=== PATIENT | female | born 1990 | race Caucasian/White ===

== ENCOUNTER 2020-12-13 13:37 | Outpatient (REF) | payer BC, SELFPAY | END 2020-12-13 13:38 | disposition home or self-care (01) | LOC: HO.LAB 13:37 | PROVIDERS: Visit Provider Hospitalist | DX: R82.71 Bacteriuria (principal) | CPT/HCPCS: 87086 ==

== ENCOUNTER 2020-12-21 19:05 | Emergency (ER) | payer BC, SELFPAY ==
[2020-12-21 21:01] VITALS: BP 107/76; PULSE 63; RESP 16; TEMP 37.1; O2SAT 100; BMI 17.7
[2020-12-21 23:22] VITALS: BP 115/67; PULSE 54; RESP 14; TEMP 36.8; O2SAT 100
--- NOTE | 2020-12-21 23:53 | ED.BACK ---
HPI - Back Pain/Injury General Chief Complaint: Back Pain/Injury Stated Complaint: Back pain Time Seen by Provider: 12/21/20 23:34 Source: patient Mode of arrival: ambulatory Limitations: no limitations History of Present Illness HPI Narrative: 30-year-old female who presents emergency department for evaluation of lower back pain. Patient states that 3 weeks prior she hurt her back by caring a heavy bag. She states the pain was initially located in her right lower back area and then shifted to her left lower back area on Friday (5 days prior to evaluation). She states the pain in her back as a sharp shooting pain which is mild at rest but is severe, 8/10 when she moves or tries to stand up. She states that the pain radiates to her left butt cheek and down the posterior aspect of her left leg to her knee. She denies any numbness or weakness of the left leg. She denies any loss of bowel or bladder control. She denied fever, chills, chest pain, shortness of breath, cough, frequency, urgency, dysuria. She states that today while she was at work she had difficulty standing and straightening her back therefore she came to the emergency department to be seen. Related Data Previous Rx's Medication Instructions Recorded cyclobenzaprine 10 mg tablet 10 mg PO TID PRN #20 tab 12/21/20 prednisone 20 mg tablet 60 mg PO DAILY 7 Days #21 tab 12/21/20 Allergies Allergy/AdvReac Type Severity Reaction Status Date / Time cinnamon [CINNAMON] Allergy Unknown SWELLING Verified 12/21/20 21:00 Sulfa (Sulfonamide Allergy Unknown SWELLING Verified 12/21/20 21:00 Antibiotics) [SULFA (SULFONAMIDE ANTIBIOTICS)] Review of Systems Review of Systems: Yes all other systems are reviewed and are negative [facility] Past Medical History [facility] Narrative: Past medical history: None. Past surgical history: None. Social history: She denies tobacco use. She drinks alcohol once a week. She denies drug use. Social History Social History Housing: House Patient Tobacco Use Status: Never used Tobacco e-Cigarette/Vaping Use: Never Used Advance Directives: No Advance Directives Information Provided: No service: No Current occupational status: employed Physical Exam Vital Signs: Vital Signs: Last Vital Signs Temp 98.2 F 12/21/20 23:22 Pulse 54 12/21/20 23:22 Resp 14 12/21/20 23:22 BP 115/67 12/21/20 23:22 Pulse Ox 100 12/21/20 23:22 Body Mass Index 17.7 Const: General: cooperative and no acute distress Orientation/consciousness: oriented to person and oriented to place Limitations: no limitations HENMT: Head: Yes normal to inspection, Yes normocephalic and Yes atraumatic Ears: external ears normal General nose exam: Normal external nose present Face and sinus: Yes normal facial exam Mouth: Normal oral and palatal mucosa present Throat: Yes posterior oropharynx normal Eyes: General: appearance normal, both eyes and all related structures Pupils: Equal, round and reactive pupils present Neck: Neck: Yes normal visual inspection, Yes no lymphadenopathy, Yes trachea midline and Yes supple Chest: Chest palpation & inspection: normal inspection of the chest and normal palpation of entire chest wall Resp: Effort & Inspection: normal respiratory effort and able to speak in complete sentences Auscultation: clear to auscultation bilaterally Cardio: Rate: regular rate Rhythm: regular rhythm Heart sounds: S1 normal heart sound present, S2 normal heart sound present and no murmurs GI: Inspection: Yes normal to inspection Palpation (GI): Soft to palpation, nontender and no guarding Auscultation: normal bowel sounds : General: Yes no CVA tenderness Back/Spine/Pelvis: Back: no CVA tenderness Thoracic/Lumbar Spine: paraspinal muscle tenderness on the left in the lower lumbar, lumbar spinal tenderness at L3, at L4 and at L5 and straight leg raise positive (Left only) Skin: General skin exam: no rashes or lesions noted Neuro: General: oriented to person and oriented to place Cranial nerves: Yes CN's II-XII intact bilaterally and Yes Equal, round and reactive pupils present Cognition (Neuro): normal cognition Motor exam (neuro): 5/5 motor strength present throughout Extrem: General: Yes normal to inspection Psych: Appearance: grossly normal Speech and movement: Normal speech and movement present Affect: normal affect Attitude: cooperative Thought process: Normal thought process present Thought content: Normal thought content present Discharge Plan Discharge Clinical Impression: Lumbar radiculopathy, Strain of lumbar region Patient Disposition: Home, Self-Care Instructions: Lumbar Radiculopathy (ED) Additional Instructions: At this time, I believe that you strained the muscles of your lower back and you have inflammation of the nerve of your lower back that are causing the pain that is traveling down your leg (lumbar radiculopathy). Your exam is normal with no weakness of your leg and a normal light touch sensory exam which is reassuring. Take prednisone 20 mg pills, 3 pills once a day for 1 week. This is a strong anti-inflammatory pain medication. Do not take any ohow-pry-hutxgoi anti-inflammatory medications such as ibuprofen, Motrin, Advil, Aleve, naproxen while you taking prednisone. Take Tylenol (acetaminophen) 500 mg pills, 2 pills every 4 to 6 hours as needed for pain. Take Flexeril (cyclobenzaprine) 10 mg pills, 1 pill every 6 hours as needed for pain and spasm. This medication will make you sleepy. Do not drive or work while taking this medication. Apply ice for 15 minutes and then wait 1 hour and then apply heat for 15 minutes. Do this 4 to 6 times a day to reduce the pain inflammation in your back muscles. Please return to the emergency department if he developed numbness or weakness of your legs, if the pain is getting significantly worse or if you develop any new symptoms that are concerning to you. Follow-up with your doctor in 2 days. Prescriptions: New cyclobenzaprine 10 mg tablet 10 mg PO TID PRN (Reason: muscle pain or spasm) Qty: 20 RF: 0 prednisone 20 mg tablet 60 mg PO DAILY 7 Days Qty: 21 RF: 0 Stand Alone Forms: Work/School Release
[2020-12-22] MEDS: predniSONE 20 MG TABLET 60 MG PO (00:14)
== END 2020-12-22 00:21 | disposition home or self-care (01) ==
PROVIDERS: Emergency Provider Emergency Medicine Emergency Medical Services; PCP Hospitalist
DX: S39.012A Strain of muscle, fascia and tendon of lower back, initial encounter (principal); M54.16 Radiculopathy, lumbar region; X50.0XXA Overexertion from strenuous movement or load, initial encounter; Y93.9 Activity, unspecified; Y92.9 Unspecified place or not applicable; Y99.9 Unspecified external cause status
CPT/HCPCS: 99283; 99284

== ENCOUNTER 2020-12-26 06:37 | Outpatient (REF) | payer BC, SELFPAY ==
[2020-12-26 11:40] LABS: Hematocrit 40.7 % (37-47); Hemoglobin 13.7 g/dl (12.0-16.0); Mean Corpuscular HGB Conc 33.7 g/dl (31.0-35.0); Mean Corpuscular Hemoglobin 31.4 pg (27.0-33.0); Mean Corpuscular Volume 93.3 fL (80-98); Mean Platelet Volume 10.2 fL (9.4-12.3); Platelet Count 309 X10*3/uL (160-400); Red Blood Count 4.36 X10*6/uL (4.20-5.50); Red Cell Distribution Width 12.6 % (11.0-16.0); White Blood Count 6.8 X10*3/uL (4.8-10.8)
[2020-12-26 11:57] LABS: Alanine Aminotransferase 14 U/L (0-31); Albumin Level 4.5 g/dL (3.5-5.0); Alkaline Phosphatase 39 U/L (39-117); Anion Gap 18 (12-20); Aspartate Amino Transferase 11 U/L (5-31); Bilirubin Total 0.7 mg/dL (0.0-1.0); Blood Urea Nitrogen 10 mg/dL (9-16); Calcium 9.8 mg/dL (8.4-10.2); Carbon Dioxide 24 mmol/L (22-29); Chloride 99 mmol/L (96-108); Cholesterol 158 mg/dL; Estimated Glomerular Filt Rate > 60; Glucose Fasting 110 mg/dL (60-99); HDL Cholesterol 66 mg/dL; LDL Cholesterol Calculated 74 mg/dl; Potassium 4.2 mmol/L (3.3-5.1); Sodium 137 mmol/L (135-145); Total Protein 7.7 g/dL (6.5-8.0); Triglycerides 93 mg/dL
[2020-12-26 12:19] LABS: TSH reflex Free T4 0.48 uIU/mL (0.32-4.0)
== END 2020-12-26 06:38 | disposition home or self-care (01) ==
LOC: HO.HMGCLDS 06:37
PROVIDERS: PCP Hospitalist; Visit Provider Hospitalist
DX: Z00.00 Encounter for general adult medical examination without abnormal findings (principal)
CPT/HCPCS: 36415; 80053; 80061; 84443; 85027

== ENCOUNTER 2022-01-29 08:51 | Outpatient (REF) | payer BC, SELFPAY ==
[2022-01-29 11:55] LABS: Hematocrit 39.2 % (37.0-47.0); Hemoglobin 13.4 g/dl (12.0-16.0); Mean Corpuscular HGB Conc 34.2 g/dl (31.0-35.0); Mean Corpuscular Hemoglobin 31.2 pg (27.0-33.0); Mean Corpuscular Volume 91.4 fL (80.0-98.0); Mean Platelet Volume 9.9 fL (9.4-12.3); Platelet Count 230 X10*3/uL (160-400); Red Blood Count 4.29 X10*6/uL (4.20-5.50); Red Cell Distribution Width 11.5 % (11.0-16.0); White Blood Count 3.4 X10*3/uL (4.8-10.8)
[2022-01-29 12:24] LABS: TSH reflex Free T4 0.97 uIU/mL (0.32-4.0)
[2022-01-29 12:33] LABS: Alanine Aminotransferase 14 U/L (0-31); Albumin Level 4.7 g/dL (3.5-5.0); Alkaline Phosphatase 59 U/L (39-117); Anion Gap 14 (12-20); Aspartate Amino Transferase 18 U/L (5-31); Bilirubin Total 0.8 mg/dL (0.0-1.0); Blood Urea Nitrogen 9 mg/dL (9-16); Calcium 9.3 mg/dL (8.4-10.2); Carbon Dioxide 27 mmol/L (22-29); Chloride 103 mmol/L (96-108); Cholesterol 157 mg/dL; Estimated Glomerular Filt Rate > 60; Glucose Fasting 93 mg/dL (60-99); HDL Cholesterol 63 mg/dL; LDL Cholesterol Calculated 82 mg/dl; Potassium 4.1 mmol/L (3.3-5.1); Sodium 140 mmol/L (135-145); Total Protein 7.5 g/dL (6.5-8.0); Triglycerides 61 mg/dL
== END 2022-01-29 08:52 | disposition home or self-care (01) ==
LOC: HO.WFDLDS 08:51
PROVIDERS: Visit Provider Hospitalist
DX: Z00.00 Encounter for general adult medical examination without abnormal findings (principal); R89.9 Unspecified abnormal finding in specimens from other organs, systems and tissues
CPT/HCPCS: 36415; 80053; 80061; 84443; 85027

== ENCOUNTER 2023-02-13 13:06 | Outpatient (AMB) | payer BC, SELFPAY ==
[2023-02-13 13:08] VITALS: BP 98/64; PULSE 76; RESP 13; TEMP 36.8; O2SAT 99; BMI 17.8
--- NOTE | 2023-02-13 13:08 | MHC.PC.OV ---
Vital Signs 02/13/23 13:08 Height 5 ft 9 in Weight 120 lb 6 oz BMI 17.8 BP 98/64 Blood Pressure Location Lt brachial Position Sitting Respiration 13 Pulse 76 Pulse Source Pulse Oximeter Temp 98.3 F Temp Source Temporal Artery Scan Pulse Oximetry (%) 99 Oxygen Delivery Method Room Air Intake Visit Reasons: Transfer of Care ( patient ) PE Inhalation Therapy Aides Teacher Required: No Accompanied by: Self / Same As Patient Allergies cinnamon [CINNAMON] Allergy (Unknown, Verified 02/13/23 13:24) SWELLING Sulfa (Sulfonamide Antibiotics) [SULFA (SULFONAMIDE ANTIBIOTICS)] Allergy (Unknown, Verified 02/13/23 13:24) SWELLING Medication List - Last Reconciled 02/13/23 by Snow Talavera CNP No Known Home Meds Tobacco use date assessed: 02/13/23 Dental Screening Dental Screen Date: 02/13/23 Did you have a dental visit in the last 12 months?: Yes Did you have a dental problem in the last 6 months where you did not have access to dental care?: No Was dental information given to patient?: Patient has dentist HPI HPI Comments History of Present Illness Details 32-year-old female presents for transfer of care Her former PCP is who is no longer with the practice. Her last office visit was on 01/29/2022. She had an extended physical exam and routine blood work done No significant past medical history She is not on prescription medications She denies acute symptoms at this time She denies smoking cigarettes. She drinks alcohol occasionally. She denies recreational drug use She notes that she is sexually active, in a monogamous relationship, and has no concerns for STD Her last pap smear test was in 2021: normal [facility] Medical History (Updated 02/13/23 @ 13:17 by Radha Stern MA) No pertinent past medical history Surgical History (Updated 02/13/23 @ 13:17 by Radha Stern MA) No pertinent past surgical history Family History (Updated 02/13/23 @ 13:19 by Radha Stern MA) Father Hemochromatosis Mother High blood pressure Diabetes Social History Housing: House Alcohol intake: current Patient Tobacco Use Status: Never used Tobacco e-Cigarette/Vaping Use: Never Used service: No Current occupational status: employed Current occupation: [employer] Cognitive needs: No Hearing needs: No Vision needs: No Questionnaire PHQ-9 Over the last 2 weeks, how often have you been bothered by any of the following problems? 1. Little interest or pleasure in doing things: not at all 2. Feeling down, depressed, or hopeless: not at all 3. Trouble falling or staying asleep, or sleeping too much: several days 4. Feeling tired or having little energy: several days 5. Poor appetite or overeating: not at all 6. Feeling bad about yourself - or that you are a failure or have let yourself or your family down: not at all 7. Trouble concentrating on things, such as reading the newspaper or watching television: not at all 8. Moving or speaking so slowly that other people could have noticed. Or the opposite - being so fidgety or restless that you have been moving around a lot more than usual: not at all 9. Thoughts that you would be better off or of hurting yourself in some way: not at all Total score: 2 Depression Screening Interpretation: Negative Depression Screening Done: Yes 78375 - PHQ-9 Billing: Yes Source: Developed by Drs. James Pereira, Stormy Martin, Rayo Bernstein and colleagues, with an educational rakesh from [employer]. Thrive Questionnaire Date Thrive assessed: 02/13/23 I am a: Patient What is your living situation today?: I have a steady place to live Within the past 12 months, did the food you bought not last and you didn't have the money to get more?: Never true Within the past 12 months, did you worry whether your food would run out before you got money to buy more?: Never true Do you have trouble paying for medicines?: No Do you have trouble getting transportation to medical appointments?: No Do you have trouble paying your heating and electricity bill?: No Do you have trouble taking care of your child, family member or friend?: No Do you have trouble with day-to-day activities such as bathing, preparing meals, shopping, managing finances, etc.?: No Are you currently unemployed and looking for a job?: No Are you interested in more education?: No Please select the resources that you would like help with: None Currently or been in a relationship where the following occur: no concerns reported AUDIT C Alcohol Use Questionnaire (AUDIT-C) 1. How often do you have a drink containing alcohol?: 2-3 times a week 2. How many drinks containing alcohol do you have on a typical day when you are drinking?: 1 or 2 3. How often do you have six or more drinks on one occasion?: Less than monthly Total Score: 4 ABDI-7 AMB Questionnaire ABDI-7 Date ABDI - 7 assessed: 02/13/23 Feeling nervous, anxious, or on edge: 1 = Several days Not being able to stop or control worryin = Several days Worrying too much about different things: 0 = Not at all Trouble relaxin = Not at all Being so restless that it is hard to sit still: 0 = Not at all Becoming easily annoyed or irritable: 1 = Several days Feeling afraid as if something awful might happen: 0 = Not at all Total ABDI-7 score (0-4 normal; 5-9 mild; 10-14 moderate; 15-21 severe): 3 Source: Developed by Drs. James Pereira, Stormy Martin, Rayo Bernstein and colleagues, with an educational rakesh from [employer]. ABDI-7 Assessment Billing ABDI-7 Assessment Tool: ABDI-7 Assessment 43517 Review of Systems Const Details: Denies chills, Denies fatigue, Denies fever(s), Denies headache(s) and Denies weakness HEENT Denies change in vision, Denies dizziness, Denies headache(s), Denies hearing loss, Denies nasal congestion, Denies sinus pain, Denies sinus pressure and Denies sore throat Card Denies chest pain, Denies lightheadedness, Denies dyspnea and Denies other (palpitations) Resp Denies cough, Denies dyspnea and Denies wheezing GI Denies abdominal pain, Denies melena, Denies hematochezia, Denies change in bowel habits, Denies dyspepsia and Denies nausea Denies hematuria and Denies dysuria Musc Denies abnormal gait, Denies myalgias, Denies arthralgias, Denies numbness and Denies tingling Skin/Breast Denies rash, Denies unusual bruising and Denies wounds Neuro Denies abnormal gait, Denies dizziness, Denies headache(s), Denies memory loss, Denies numbness, Denies Sensory deficit (Neuro), Denies tingling and Denies weakness Psych Denies anxiety, Denies depression and Denies memory loss Endo Denies cold intolerance, Denies fatigue, Denies heat intolerance, Denies polydipsia and Denies polyuria Barrera/Lymph Denies easy bleeding and Denies easy bruising Aller/Immun Denies wheezing Physical exam (Primary Care) Tobacco/Smoking Status: Tobacco use Status Tobacco use date assessed 01/29/22 01/07/23 11:24 Patient Tobacco Use Status Never used Tobacco 01/07/23 11:24 e-Cigarette/Vaping Use Never Used 01/07/23 11:24 Depression Screening Interpretation: Negative Thrive Assessment: Date of Thrive Assessment Date Thrive assessed 01/29/22 01/07/23 11:24 Currently or been in a relationship where the following occur: no concerns reported Const Other: General: no acute distress, well developed, alert and awake Nutritional Appearance: well nourished Orientation/consciousness: patient oriented x3 HENMT Head: Yes normocephalic and Yes atraumatic Ears: hearing grossly normal bilaterally and TM's normal bilaterally General nose exam: Normal external nose present and Normal nares present Mouth: Normal oral and palatal mucosa present and moist mucous membranes Teeth and gingiva: dentition normal Throat: Yes oropharynx normal Eyes Pupils: Equal, round and reactive pupils present and Pupil accommodation reflex normal EOM: EOMs intact bilaterally Neck Neck: Yes normal visual inspection, Yes no lymphadenopathy and Yes trachea midline Thyroid: Thyroid normal Carotids: no bruits Lymphatic: no lymphadenopathy noted Chest Chest palpation & inspection: normal inspection of the chest Resp Effort & Inspection: normal respiratory effort Auscultation: clear to auscultation bilaterally Cardio Rate: regular rate Rhythm: regular rhythm Heart sounds: S1 normal heart sound present, S2 normal heart sound present, no gallops, no murmurs and no rubs Bruits: no abdominal aortic bruits and no carotid bruits GI Palpation (GI): No Abdominal aortic bruit present, Soft to palpation, nontender, No hepatosplenomegaly present and No Rebound tenderness present Auscultation: normal bowel sounds General: Yes no CVA tenderness Back/Spine/Pelvis Back: no CVA tenderness Cervical Spine: cervical ROM normal and No Cervical spine tenderness Thoracic/Lumbar Spine: thoraco-lumbar ROM normal, No pain with thoraco-lumbar ROM, No thoracic spinal tenderness and No lumbar spinal tenderness Skin General: warm and dry. Normal skin color. Normal skin turgor Lesions: no lesions Rashes: no rashes Trauma: no lacerations or abrasions Wounds: no wounds Nails: normal Neuro General: patient oriented x3, gait normal and CN's II-XI intact bilaterally Cranial nerves: Yes Equal, round and reactive pupils present Cognition (Neuro): normal cognition Gait exam (Neuro): Normal gait present Motor exam (neuro): 5/5 motor strength present throughout Sensory Exam: No Sensory deficit (Neuro) Deep tendon reflexes (DTR's): Right patellar reflex intensity grade: 2+ and Left patellar reflex intensity grade: 2+ Extrem General: Yes normal to inspection, No edema and No calf tenderness Psych Appearance: grossly normal Affect: normal affect Attitude: cooperative Thought process: Normal thought process present Assessment and Plan Assessment & Plan (1) Normal physical exam: Code(s): Z00.00 - Encounter for general adult medical examination without abnormal findings Plan: No significant physical restrictions or limitations noted Advised to get blood work done. Will review results and contact patient with remarkable findings Advised to schedule her next physical for a year from today Return with symptoms or concerns Verbalized understanding and agreed with treatment plan (2) Laboratory tests ordered as part of a complete physical exam (CPE): Code(s): Z00.00 - Encounter for general adult medical examination without abnormal findings Plan: Fasting labs ordered as part of a complete physical exam. Advised to fast for at least 10 hours before getting labs drawn. May drink water Verbalized understanding and agreed with treatment plan. Orders: Orders Complete Blood Count Auto Diff Today Z00.00 - Encounter for general adult medical examination without abnormal findings Comprehensive [place] Pool. Panel Fast Today Z00.00 - Encounter for general adult medical examination without abnormal findings Lipid Panel Today Z00.00 - Encounter for general adult medical examination without abnormal findings TSH reflex Free T4 Today Z00.00 - Encounter for general adult medical examination without abnormal findings UA CC w/rflx Micro + Cult Today Z00.00 - Encounter for general adult medical examination without abnormal findings Coding Level of Care Code Est Pt Prev Care [id number]) Diagnoses Normal physical exam Z00.00 Laboratory tests ordered as part of a complete physical exam (CPE) Z00.00 Additional Codes ABDI-7 Assessment Billing - ABDI-7 Assessment Tool: ABDI-7 Assessment 27440 ([id number])
== END 2023-02-13 13:40 | disposition home or self-care (01) ==
PROVIDERS: PCP Hospitalist; Visit Provider Nurse Practitioner Family
DX: Z00.00 Encounter for general adult medical examination without abnormal findings (principal)
CPT/HCPCS: 99395

== ENCOUNTER 2023-02-14 08:28 | Outpatient (REF) | payer BC, SELFPAY ==
[2023-02-14 11:10] LABS: MANUAL DIFF FLAG NO
[2023-02-14 11:20] LABS: Appearance Urine Clear; Color Urine Yellow; Glucose Urine UA Negative (Negative); Leukocyte Esterase Urine Negative (Negative); Nitrite Urine Negative (Negative); Specific Gravity - Urine 1.025 (1.005-1.025); Urine Blood Negative (Negative); Urine Ketones Negative (Negative); Urine Protein Negative (Neg-Trace)
[2023-02-14 11:43] LABS: Basophils Percent Auto 0.6 % (0-2); Hematocrit 37.4 % (37.0-47.0); Hemoglobin 12.8 g/dl (12.0-16.0); Imm Gran Abs Auto 0.01 X10*3/uL (0.00-0.03); Imm Gran Pct Auto 0.3 % (0.0-0.4); Lymphocytes Absolute Auto 1.3 X10*3/uL (1.2-4.9); Lymphocytes Percent Auto 36.6 % (20-40); Mean Corpuscular HGB Conc 34.2 g/dl (31.0-35.0); Mean Corpuscular Hemoglobin 31.8 pg (27.0-33.0); Monocytes Absolute Auto 0.3 X10*3/uL (0.1-1.2); Monocytes Percent Auto 8.8 % (2-11); Neutrophils Absolute Auto 1.9 x10*3/uL (2.0-8.3); Neutrophils Percent Auto 53.7 % (45-73); Platelet Count 244 X10*3/uL (160-400); Red Blood Count 4.02 X10*6/uL (4.20-5.50); Red Cell Distribution Width 11.9 % (11.0-16.0); White Blood Count 3.5 X10*3/uL (4.8-10.8)
[2023-02-14 12:06] LABS: Alanine Aminotransferase 14 U/L (0-31); Albumin Level 4.6 g/dL (3.5-5.0); Alkaline Phosphatase 39 U/L (39-117); Anion Gap 13 (12-20); Aspartate Amino Transferase 17 U/L (5-31); Bilirubin Total 0.9 mg/dL (0.0-1.0); Blood Urea Nitrogen 14 mg/dL (9-16); Calcium 9.2 mg/dL (8.4-10.2); Carbon Dioxide 26 mmol/L (22-29); Chloride 105 mmol/L (96-108); Cholesterol 139 mg/dL (<200); Estimated Glomerular Filt Rate > 60; Glucose Fasting 90 mg/dL (60-99); HDL Cholesterol 63 mg/dL (>40); LDL Cholesterol Calculated 67 mg/dL (<100); Sodium 140 mmol/L (135-145); Total Protein 7.5 g/dL (6.5-8.0); Triglycerides 48 mg/dL (<150)
[2023-02-14 12:22] LABS: TSH reflex Free T4 0.75 uIU/mL (0.32-4.0)
== END 2023-02-14 08:29 | disposition home or self-care (01) ==
LOC: HO.WFDLDS 08:28
PROVIDERS: Visit Provider Nurse Practitioner Family
DX: Z00.00 Encounter for general adult medical examination without abnormal findings (principal)
CPT/HCPCS: 36415; 80053; 80061; 81003; 84443; 85025

== ENCOUNTER 2024-02-16 08:30 | Outpatient (AMB) | payer BC, SELFPAY ==
--- NOTE | 2024-02-16 08:31 | MHC.PC.OV ---
Vital Signs 02/16/24 08:36 Height 5 ft 9 in Weight 127 lb BMI 18.8 BP 107/66 Blood Pressure Location Rt brachial Position Sitting Respiration 16 Pulse 80 Pulse Source Pulse Oximeter Temp 98.2 F Temp Source Temporal Artery Scan Pulse Oximetry (%) 100 Oxygen Delivery Method Room Air Intake Visit Reasons: CPE Intake Note: patient here for CPE Treasury Assistant Required: No Is last menstrual period known: Yes Last menstrual period: 02/02/24 Post menopausal: No Patient : No Allergies cinnamon [CINNAMON] Allergy (Unknown, Verified 02/16/24 08:42) SWELLING Sulfa (Sulfonamide Antibiotics) [SULFA (SULFONAMIDE ANTIBIOTICS)] Allergy (Unknown, Verified 02/16/24 08:42) SWELLING Medication List - Last Reconciled 02/16/24 by Snow Talavera CNP No Known Home Meds Tobacco use date assessed: 02/16/24 Dental Screening Dental Screen Date: 02/16/24 Did you have a dental visit in the last 12 months?: Yes Did you have a dental problem in the last 6 months where you did not have access to dental care?: No Was dental information given to patient?: Patient has dentist HPI HPI Comments History of Present Illness Details The patient presents for a routine physical examination. The patient is a 33-year-old female presenting for a routine physical examination. She has no significant past medical history and is not currently taking any prescription medications. She reports no acute symptoms at this time. The patient's last dental visit was in either August or September of the current year, and her most recent eye examination occurred last year. Her tetanus vaccination status is unclear, as she could not recall if it was administered within the last ten years. She declined the flu vaccine during this visit. The patient conveyed that her last Pap smear test was approximately three years ago, and this was conducted at the [facility] [place]. 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 - Exercise: Engages in physical activity three times a week. - Sleep: Reports generally sleeping well. - Diet: States making healthy dietary choices. - Denies smoking cigarette, vaping, or recreational drug due. - She drinks 1-2 beers 1-2 times monthly. Health Maintenance - Last eye exam was a year ago. She will schedule an appointment with her technical editor for an update. - Last dental visit was the summer. - Tetanus vaccination: Current status unclear, patient advised to consider update. - Pap smear: Last conducted three years ago, patient encouraged to schedule an update. - Influenza vaccination: Declined by the patient for the current season. - Labs ordered: CBC, CMP, Lipid panel, and urine analysis for routine screening. [facility] Medical History (Updated 02/16/24 @ 09:03 by Snow Talavera CNP) No pertinent past medical history Surgical History (Updated 02/13/23 @ 13:17 by LORRI Sanchez) No pertinent past surgical history Family History Father Hemochromatosis Mother High blood pressure Diabetes Social History Housing: House Alcohol intake: current Patient Tobacco Use Status: Never used Tobacco e-Cigarette/Vaping Use: Never Used service: No Current occupational status: employed Current occupation: [employer] Cognitive needs: No Hearing needs: No Vision needs: No Female Reproductive History Menstrual Date of last menstrual period: 02/02/24 Questionnaire PHQ-9 Over the last 2 weeks, how often have you been bothered by any of the following problems? 1. Little interest or pleasure in doing things: not at all 2. Feeling down, depressed, or hopeless: not at all 3. Trouble falling or staying asleep, or sleeping too much: several days 4. Feeling tired or having little energy: several days 5. Poor appetite or overeating: not at all 6. Feeling bad about yourself - or that you are a failure or have let yourself or your family down: not at all 7. Trouble concentrating on things, such as reading the newspaper or watching television: not at all 8. Moving or speaking so slowly that other people could have noticed. Or the opposite - being so fidgety or restless that you have been moving around a lot more than usual: not at all 9. Thoughts that you would be better off or of hurting yourself in some way: not at all Total score: 2 Depression Screening Interpretation: Negative Depression Screening Done: Yes 52954 - PHQ-9 Billing: Yes Source: Developed by Drs. James Pereira, Stormy Martin, Rayo Bernstein and colleagues, with an educational rakesh from [employer]. Thrive Questionnaire Date Thrive assessed: 02/16/24 I am a: Patient What is your living situation today?: I have a steady place to live Within the past 12 months, did the food you bought not last and you didn't have the money to get more?: Never true Within the past 12 months, did you worry whether your food would run out before you got money to buy more?: Never true Do you have trouble paying for medicines?: No Do you have trouble getting transportation to medical appointments?: No Do you have trouble paying your heating and electricity bill?: No Do you have trouble taking care of your child, family member or friend?: No Do you have trouble with day-to-day activities such as bathing, preparing meals, shopping, managing finances, etc.?: No Are you currently unemployed and looking for a job?: No Are you interested in more education?: No Please select the resources that you would like help with: None Currently or been in a relationship where the following occur: No concerns reported THRIVE Score: 0 AUDIT C Alcohol Use Questionnaire (AUDIT-C) 1. How often do you have a drink containing alcohol?: 2-4 times a month 2. How many drinks containing alcohol do you have on a typical day when you are drinking?: 1 or 2 3. How often do you have six or more drinks on one occasion?: Less than monthly Total Score: 3 Score Reviewed/Action Taken: Yes ABDI-7 AMB Questionnaire ABDI-7 Date ABDI - 7 assessed: 02/16/24 Feeling nervous, anxious, or on edge: 0 = Not at all Not being able to stop or control worryin = Not at all Worrying too much about different things: 0 = Not at all Trouble relaxin = Not at all Being so restless that it is hard to sit still: 0 = Not at all Becoming easily annoyed or irritable: 0 = Not at all Feeling afraid as if something awful might happen: 0 = Not at all Total ABDI-7 score (0-4 normal; 5-9 mild; 10-14 moderate; 15-21 severe): 0 Source: Developed by Stormy OlmosW. Mario, Rayo Bernstein and colleagues, with an educational rakesh from [employer]. ABDI-7 Assessment Billing ABDI-7 Assessment Tool: ABDI-7 Assessment 56208 Review of Systems Const Details: Denies chills, Denies fatigue, Denies fever(s), Denies headache(s) and Denies weakness HEENT Denies change in vision, Denies dizziness, Denies headache(s), Denies hearing loss, Denies nasal congestion, Denies sinus pain, Denies sinus pressure and Denies sore throat Card Denies chest pain, Denies lightheadedness, Denies dyspnea and Denies other (palpitations) Resp Denies cough, Denies dyspnea and Denies wheezing GI Denies abdominal pain, Denies melena, Denies hematochezia, Denies change in bowel habits, Denies dyspepsia and Denies nausea Denies hematuria and Denies dysuria Musc Denies abnormal gait, Denies myalgias, Denies arthralgias, Denies numbness and Denies tingling Skin/Breast Denies rash, Denies unusual bruising and Denies wounds Neuro Denies abnormal gait, Denies dizziness, Denies headache(s), Denies memory loss, Denies numbness, Denies Sensory deficit (Neuro), Denies tingling and Denies weakness Psych Denies anxiety, Denies depression and Denies memory loss Endo Denies cold intolerance, Denies fatigue, Denies heat intolerance, Denies polydipsia and Denies polyuria Barrera/Lymph Denies easy bleeding and Denies easy bruising Aller/Immun Denies wheezing Physical exam (Primary Care) Vital Signs: Last Vital Signs Temp 98.2 F 02/16/24 08:36 Pulse 80 02/16/24 08:36 Resp 16 02/16/24 08:36 BP 107/66 02/16/24 08:36 Pulse Ox 100 02/16/24 08:36 Oxygen Delivery Method Room Air 02/16/24 08:36 BMI result Body Mass Index 18.8 Tobacco/Smoking Status: Tobacco use Status Tobacco use date assessed 02/16/24 02/16/24 08:39 Patient Tobacco Use Status Never used Tobacco 02/16/24 08:39 e-Cigarette/Vaping Use Never Used 02/16/24 08:39 PHQ-9: PHQ-9 Score PHQ-9: Total score 2 02/16/24 08:43 Depression Screening Interpretation: Negative Thrive Assessment: Date of Thrive Assessment Date Thrive assessed 02/16/24 02/16/24 08:39 Currently or been in a relationship where the following occur: No concerns reported Const Other: General: no acute distress, well developed, alert and awake Nutritional Appearance: well nourished Orientation/consciousness: patient oriented x3 HENMT Head: Yes normocephalic and Yes atraumatic Ears: hearing grossly normal bilaterally and TM's normal bilaterally General nose exam: Normal external nose present and Normal nares present Mouth: Normal oral and palatal mucosa present and moist mucous membranes Teeth and gingiva: dentition normal Throat: Yes oropharynx normal Eyes Pupils: Equal, round and reactive pupils present and Pupil accommodation reflex normal EOM: EOMs intact bilaterally Neck Neck: Yes normal visual inspection, Yes no lymphadenopathy and Yes trachea midline Thyroid: Thyroid normal Carotids: no bruits Lymphatic: no lymphadenopathy noted Chest Chest palpation & inspection: normal inspection of the chest Resp Effort & Inspection: normal respiratory effort Auscultation: clear to auscultation bilaterally Cardio Rate: regular rate Rhythm: regular rhythm Heart sounds: S1 normal heart sound present, S2 normal heart sound present, no gallops, no murmurs and no rubs Bruits: no abdominal aortic bruits and no carotid bruits GI Palpation (GI): No Abdominal aortic bruit present, Soft to palpation, nontender, No hepatosplenomegaly present and No Rebound tenderness present Auscultation: normal bowel sounds General: Yes no CVA tenderness Back/Spine/Pelvis Back: no CVA tenderness Cervical Spine: cervical ROM normal and No Cervical spine tenderness Thoracic/Lumbar Spine: thoraco-lumbar ROM normal, No pain with thoraco-lumbar ROM, No thoracic spinal tenderness and No lumbar spinal tenderness Skin General: warm and dry. Normal skin color. Normal skin turgor Lesions: no lesions Rashes: no rashes Trauma: no lacerations or abrasions Wounds: no wounds Nails: normal Neuro General: patient oriented x3, gait normal and CN's II-XI intact bilaterally Cranial nerves: Yes Equal, round and reactive pupils present Cognition (Neuro): normal cognition Gait exam (Neuro): Normal gait present Motor exam (neuro): 5/5 motor strength present throughout Sensory Exam: No Sensory deficit (Neuro) Deep tendon reflexes (DTR's): Right patellar reflex intensity grade: 2+ and Left patellar reflex intensity grade: 2+ Extrem General: Yes normal to inspection, No edema and No calf tenderness Psych Appearance: grossly normal Affect: normal affect Attitude: cooperative Thought process: Normal thought process present Immunizations Boostrix Tdap 2.5 Lf unit-8 mcg-5 Lf/0.5 mL intramuscular syringe Performing Provider: Snow Talavera CNP Performing Location: [facility] [place] [facility] Administered by: Adrienne Basurto RN on 02/16/24 09:08 Dose Route Admin Location Dispensed Lot Number Expiration Date NDC Manager Of Transportation 0.5 mL IM Left Deltoid 0.5 mL [id number] 04/07/26 [id number] [employer] VIS Given Date VIS Provided VIS Publication Date 02/16/24 Single Vaccine 20 Eligibility Eligibility Date Funding Source Not [facility] Eligible 02/16/24 Private Coding Level of Care Code Est Pt Prev Care 18-39y(29153) Diagnoses Normal physical exam Z00.00 Vaccine for tetanus toxoid Z23 Laboratory tests ordered as part of a complete physical exam (CPE) Z00.00 Additional Codes ABDI-7 Assessment Billing - ABDI-7 Assessment Tool: ABDI-7 Assessment 11754 ([id number]) PHQ-9 - 54107 - PHQ-9 Billing: Yes ([id number]) Assessment & Plan Assessment & Plan (1) Normal physical exam: Code(s): Z00.00 - Encounter for general adult medical examination without abnormal findings Category: Medical Plan: No significant functional limitation noted. (2) Vaccine for tetanus toxoid: Code(s): Z23 - Encounter for immunization Category: Medical Plan: The patient will receive the vaccination today, as desired, due to uncertainty about her vaccination history. (3) Laboratory tests ordered as part of a complete physical exam (CPE): Code(s): Z00.00 - Encounter for general adult medical examination without abnormal findings Category: Medical Plan: Fasting labs ordered as part of a complete physical exam. Advised to fast for at least 10 hours before getting labs drawn. May drink water Verbalized understanding and agreed with treatment plan. Plan I discussed with the patient that her physical examination was within normal limits, including her heart and lungs. We reviewed the importance of keeping vaccinations up to date, specifically the tetanus booster which is good for ten years but recommended sooner if exposure risk occurs. We discussed the need for a Pap smear, considering her last one was conducted three years ago. I informed her about the lab work to be done before the next telehealth visit and provided instructions on fasting requirements. She consented to consider receiving a tetanus booster and acknowledged the importance of scheduling the Pap smear. Orders: Orders Complete Blood Count Auto Diff Today Z00.00 - Encounter for general adult medical examination without abnormal findings Lipid Panel Today Z00.00 - Encounter for general adult medical examination without abnormal findings TDaP Immunization Today Z23 - Encounter for immunization Comprehensive [place]. Panel Fast Today Z00.00 - Encounter for general adult medical examination without abnormal findings TSH reflex Free T4 Today Z00.00 - Encounter for general adult medical examination without abnormal findings UA CC w/rflx Micro + Cult Today Z00.00 - Encounter for general adult medical examination without abnormal findings Patient Instructions: - Consider receiving the tetanus booster at the end of the visit. - Schedule an appointment for a Pap smear test. - Complete fasting lab tests (CBC, CMP, lipid panel, TSH/T4 and urinalysis) prior to the next telehealth appointment. - Follow up in two to three weeks for telehealth visit to review lab results, and schedule with the bowling or skating front desk clerk. - Should any acute symptoms or issues arise, contact my office for an earlier appointment. Patient was informed and verbally consented to the use of an ambient scribe for clinic note documentation during this visit.
[2024-02-16 08:36] VITALS: BP 107/66; PULSE 80; RESP 16; TEMP 36.8; O2SAT 100; BMI 18.8
== END 2024-02-16 08:55 | disposition home or self-care (01) ==
PROVIDERS: PCP Nurse Practitioner Family; Visit Provider Nurse Practitioner Family
DX: Z00.00 Encounter for general adult medical examination without abnormal findings (principal); Z23 Encounter for immunization

== ENCOUNTER → 2024-02-16 08:30 | Outpatient (BNVA) | payer BC, SELFPAY | PROVIDERS: PCP Nurse Practitioner Family; Visit Provider Nurse Practitioner Family | DX: Z00.00 Encounter for general adult medical examination without abnormal findings (principal); Z23 Encounter for immunization | CPT/HCPCS: 90471; 90715; 96127 ==

== ENCOUNTER 2024-02-16 09:10 | Outpatient (REF) | payer BC, SELFPAY ==
[2024-02-16 11:14] LABS: Appearance Urine Clear; Color Urine Yellow; Glucose Urine UA Negative (Negative); Leukocyte Esterase Urine Negative (Negative); Nitrite Urine Negative (Negative); UMIC TRIGGER UACC YES; Urine Blood Negative (Negative); Urine Ketones Trace mg/dL (Negative); Urine Protein 100 (2+) mg/dL (Neg-Trace)
[2024-02-16 11:20] LABS: MANUAL DIFF FLAG NO
[2024-02-16 11:21] LABS: Bacteria Urine None Seen (None Seen); Hyaline Casts Urine 0-2 /LPF (0-2); RBC Urine 0-2 /HPF (0-2); Squamous Epithelial Cell Urine 0-2 /HPF (0-2); WBC Urine 0-5 /HPF (0-5)
[2024-02-16 11:24] LABS: Basophils Percent Auto 0.5 % (0-2); Eosinophils Percent Auto 0.3 % (0-4); Hematocrit 39.5 % (37.0-47.0); Hemoglobin 13.4 g/dl (12.0-16.0); Imm Gran Abs Auto 0.01 X10*3/uL (0.00-0.03); Imm Gran Pct Auto 0.3 % (0.0-0.4); Lymphocytes Percent Auto 24.9 % (20-40); Mean Corpuscular HGB Conc 33.9 g/dl (31.0-35.0); Mean Corpuscular Volume 94.3 fL (80.0-98.0); Mean Platelet Volume 10.1 fL (9.4-12.3); Monocytes Absolute Auto 0.5 X10*3/uL (0.1-1.2); Monocytes Percent Auto 11.3 % (2-11); Neutrophils Absolute Auto 2.5 x10*3/uL (2.0-8.3); Neutrophils Percent Auto 62.7 % (45-73); Platelet Count 230 X10*3/uL (160-400); Red Blood Count 4.19 X10*6/uL (4.20-5.50); Red Cell Distribution Width 11.9 % (11.0-16.0)
[2024-02-16 12:10] LABS: Alanine Aminotransferase 14 U/L (0-31); Albumin Level 4.5 g/dL (3.5-5.0); Alkaline Phosphatase 43 U/L (39-117); Anion Gap 8 (12-20); Aspartate Amino Transferase 20 U/L (5-31); Bilirubin Total 0.9 mg/dL (0.0-1.0); Blood Urea Nitrogen 8 mg/dL (9-16); Carbon Dioxide 31 mmol/L (22-29); Chloride 104 mmol/L (96-108); Cholesterol 134 mg/dL (<200); Estimated Glomerular Filt Rate > 60; Glucose Fasting 96 mg/dL (60-99); HDL Cholesterol 57 mg/dL (>40); LDL Cholesterol Calculated 64 mg/dL (<100); Sodium 139 mmol/L (135-145); Total Protein 7.3 g/dL (6.5-8.0); Triglycerides 67 mg/dL (<150)
[2024-02-16 12:27] LABS: TSH reflex Free T4 0.72 uIU/mL (0.32-4.0)
== END 2024-02-16 09:11 | disposition home or self-care (01) ==
LOC: HO.WFDLDS 09:10
PROVIDERS: Visit Provider Nurse Practitioner Family
DX: Z00.00 Encounter for general adult medical examination without abnormal findings (principal)
CPT/HCPCS: 36415; 80053; 80061; 81001; 84443; 85025

== ENCOUNTER 2024-03-03 14:53 | Outpatient (AMB) | payer BC, SELFPAY ==
--- NOTE | 2024-03-03 14:50 | A.OFFPC_ITS ---
Intake Visit Reasons: Telehealth 2-3 wks labs review Intake Note: telehealth visit Allergies cinnamon [CINNAMON] Allergy (Unknown, Verified 03/03/24 14:51) SWELLING Sulfa (Sulfonamide Antibiotics) [SULFA (SULFONAMIDE ANTIBIOTICS)] Allergy (Unknown, Verified 03/03/24 14:51) SWELLING Tobacco use date assessed: 02/16/24 Dental Screening Dental Screen Date: 02/16/24 HPI HPI Comments History of Present Illness Details 33-year-old [facility] results. She offers no complaints and denies acute symptoms at this time. [facility] Medical History (Updated 03/03/24 @ 15:08 by Snow Talavera CNP) No pertinent past medical history Surgical History (Updated 02/13/23 @ 13:17 by LORRI Sanchez) No pertinent past surgical history Family History Father Hemochromatosis Mother High blood pressure Diabetes Social History Housing: House Alcohol intake: current Patient Tobacco Use Status: Never used Tobacco e-Cigarette/Vaping Use: Never Used service: No Current occupational status: employed Current occupation: [employer] Cognitive needs: No Hearing needs: No Vision needs: No Questionnaire Thrive Questionnaire Date Thrive assessed: 02/16/24 I am a: Patient What is your living situation today?: I have a steady place to live Within the past 12 months, did the food you bought not last and you didn't have the money to get more?: Never true Within the past 12 months, did you worry whether your food would run out before you got money to buy more?: Never true Do you have trouble paying for medicines?: No Do you have trouble getting transportation to medical appointments?: No Do you have trouble paying your heating and electricity bill?: No Do you have trouble taking care of your child, family member or friend?: No Do you have trouble with day-to-day activities such as bathing, preparing meals, shopping, managing finances, etc.?: No Are you currently unemployed and looking for a job?: No Are you interested in more education?: No Please select the resources that you would like help with: None Currently or been in a relationship where the following occur: No concerns reported THRIVE Score: 0 ABDI-7 AMB Questionnaire ABDI-7 Date ABDI - 7 assessed: 02/16/24 Source: Developed by Drs. James Pereira, Stormy Martin, Rayo Bernstein and colleagues, with an educational rakesh from [employer]. Review of Systems Const Details: Const Denies chills, Denies fatigue, Denies fever(s), Denies headache(s) and Denies weakness ENT Denies dizziness and Denies headache(s) Card Denies chest pain, Denies lightheadedness, Denies dyspnea and Denies other (Palpitations) Resp Denies cough, Denies dyspnea, Denies wheezing and Denies other ( shortness of breath) GI Denies abdominal pain, Denies melena, Denies hematochezia, Denies change in bowel habits, Denies dyspepsia and Denies nausea Denies hematuria and Denies dysuria Musc Denies abnormal gait, Denies myalgias, Denies arthralgias, Denies numbness and Denies tingling Skin/Breast Denies rash, Denies unusual bruising and Denies wounds Neuro Denies abnormal gait, Denies dizziness, Denies headache(s), Denies memory loss, Denies numbness, Denies Sensory deficit (Neuro), Denies tingling and Denies weakness Psych Denies anxiety, Denies depression, Denies memory loss Endo Denies cold intolerance, Denies fatigue, Denies heat intolerance, Denies polydipsia and Denies polyuria Aller/Immun Denies wheezing Physical exam (Primary Care) Tobacco/Smoking Status: Tobacco use Status Tobacco use date assessed 02/16/24 03/03/24 14:52 Patient Tobacco Use Status Never used Tobacco 03/03/24 14:52 e-Cigarette/Vaping Use Never Used 03/03/24 14:52 Thrive Assessment: Date of Thrive Assessment Date Thrive assessed 02/16/24 03/03/24 14:52 Currently or been in a relationship where the following occur: No concerns reported Const Other: Telehealth visit no physical exam. Telehealth Telehealth Telehealth Platform: Telephone Location of provider rendering services: practice address Location of patient: address on file Patient Identification confirmed using: Name, : Yes Telehealth method: voice only Patient verbally consented to treatment: Yes Patient verbally consented to billing insurance company: Yes Patient informed of any privacy concerns related to visit: Yes Coding Level of Care Code Tele Est Pt Level 3 (12665) Diagnoses Leukopenia D72.819 Time Spent (min) 10 Assessment & Plan Assessment & Plan (1) Leukopenia: Code(s): D72.819 - Decreased white blood cell count, unspecified Category: Medical Plan: Recent labs reviewed with the patient; unremarkable findings except for slightly low WBC which is equivocal. She has history of leukopenia. Will check vitamin B12 and folate levels and make changes as needed. Advised to schedule her next physical exam for own or after 02/15/2025 or return sooner with symptoms or concerns. Verbalized understanding and agreed with treatment plan. Orders: Orders Vitamin B12 and Folate Today D72.819 - Decreased white blood cell count, unspecified
== END 2024-03-03 15:39 | disposition home or self-care (01) ==
LOC: HO.HMCFM 14:53
PROVIDERS: PCP Nurse Practitioner Family; Visit Provider Nurse Practitioner Family
DX: D72.819 Decreased white blood cell count, unspecified (principal)

== ENCOUNTER → 2024-03-03 14:53 | Outpatient (BNVA) | payer BC, SELFPAY | PROVIDERS: PCP Nurse Practitioner Family; Visit Provider Nurse Practitioner Family ==

== ENCOUNTER 2024-03-08 08:40 | Outpatient (REF) | payer BC, SELFPAY ==
[2024-03-08 14:01] LABS: Folate 9.8 ng/mL (> or = 4.0); Vitamin B12 624 pg/mL (200-900)
== END 2024-03-08 08:41 | disposition home or self-care (01) ==
LOC: HO.WFDLDS 08:40
PROVIDERS: Visit Provider Nurse Practitioner Family
DX: D72.819 Decreased white blood cell count, unspecified (principal)
CPT/HCPCS: 36415; 82607; 82746

== ENCOUNTER 2025-02-18 08:01 | Outpatient (AMB) | payer BC, SELFPAY ==
--- NOTE | 2025-02-18 08:03 | A.OFFPC_ITS ---
Vital Signs 02/18/25 08:08 Height 5 ft 9 in Weight 128 lb 4 oz BMI 18.9 BP 109/56 L Blood Pressure Location Lt brachial Position Sitting Respiration 16 Pulse 68 Pulse Source Pulse Oximeter Temp 97.6 F Temp Source Oral Pulse Oximetry (%) 100 Oxygen Delivery Method Room Air Intake Visit Reasons: cpe Intake Note: patient here for CPE Cash Teller Required: No Is last menstrual period known: Yes Last menstrual period: 02/18/25 Post menopausal: No Patient : No Allergies cinnamon (CINNAMON) Allergy (Unknown, Verified 02/18/25 08:12) SWELLING Sulfa (Sulfonamide Antibiotics) (SULFA (SULFONAMIDE ANTIBIOTICS)) Allergy (Unknown, Verified 02/18/25 08:12) SWELLING Medication List - Last Reconciled 02/18/25 by Snow Talavear CNP No Known Home Meds Tobacco use date assessed: 02/18/25 Dental Screening Dental Screen Date: 02/18/25 Did you have a dental visit in the last 12 months?: Yes Did you have a dental problem in the last 6 months where you did not have access to dental care?: No Was dental information given to patient?: Patient has dentist HPI HPI Comments History of Present Illness Details 34-year-old female presents for an exten ded physical exam. She is not on prescription medication. She has been fasting for at least 10 hours and will perform lab work after this visit. Acute issue(s) - Reports intermittent frontal headache for the past 2 months. Denies associ ated dizziness, visual disturbance, pain to eyes, or nausea. Her work involves looking at computer screen for significant amount of time. She also mentioned work stressors. Ibuprofen provides relief. No acute symptoms at this time. Past Medical History - Myopia (wears contacts), eukopenia Social History - Nonsmoker. Does not vape. Drinks alcoh ol occasionally. Denies recreational drug use - Has been making healthy dietary choice s. Exercises routinely. Generally sleep well Health maintenance - Last eye exam was in 08/2024 with [facility]: Normal - Last dental visit was 4-5 months ago - Last Tdap vaccine was in 02/16/2024 - Has not been vaccinated for the flu ; declines vaccination - Last pap smear test was over 3 years a go. Declines referral for a pap smear test Specialists - None [facility] Medical History No pertinent past medical history Surgical History No pertinent past surgical history Family History Father Hemochromatosis Mother High blood pressure Diabetes Social History Housing: House Alcohol intake: current Patient Tobacco Use Status: Never used Tobacco e-Cigarette/Vaping Use: Never Used service: No Current occupational status: employed Current occupation: [employer] Current occupational exposures/hazards: No Cognitive needs: No Hearing needs: No Vision needs: No Female Reproductive History Menstrual Date of last menstrual period: 02/18/25 Questionnaire PHQ-9 Over the last 2 weeks, how often have you been bothered by any of the following problems? 1. Little interest or pleasure in doing things: not at all 2. Feeling down, depressed, or hopeless: not at all 3. Trouble falling or staying asleep, or sleeping too much: not at all 4. Feeling tired or having little energy: not at all 5. Poor appetite or overeating: not at all 6. Feeling bad about yourself - or that you are a failure or have let yourself or your family down: not at all 7. Trouble concentrating on things, such as reading the newspaper or watching television: not at all 8. Moving or speaking so slowly that other people could have noticed. Or the opposite - being so fidgety or restless that you have been moving around a lot more than usual: not at all 9. Thoughts that you would be better off or of hurting yourself in some way: not at all Total score: 0 Depression Screening Interpretation: Negative Depression Screening Done: Yes 42399 - PHQ-9 Billing: Yes Source: Developed by Drs. Jmaes Pereira, Stormy Martin, Rayo Bernstein and colleagues, with an educational rakesh from [employer]. Thrive Questionnaire Date Thrive assessed: 02/18/25 I am a: Patient What is your living situation today?: I have a steady place to live Within the past 12 months, did the food you bought not last and you didn't have the money to get more?: Never true Within the past 12 months, did you worry whether your food would run out before you got money to buy more?: Never true Do you have trouble paying for medicines?: No Do you have trouble getting transportation to medical appointments?: No Do you have trouble paying your heating and electricity bill?: No Do you have trouble taking care of your child, family member or friend?: No Do you have trouble with day-to-day activities such as bathing, preparing meals, shopping, managing finances, etc.?: No Are you currently unemployed and looking for a job?: No Are you interested in more education?: No Please select the resources that you would like help with: None Currently or been in a relationship where the following occur: No concerns reported THRIVE Score: 0 AUDIT C Alcohol Use Questionnaire (AUDIT-C) 1. How often do you have a drink containing alcohol?: Monthly or less 2. How many drinks containing alcohol do you have on a typical day when you are drinking?: 1 or 2 3. How often do you have six or more drinks on one occasion?: Less than monthly Total Score: 2 Score Reviewed/Action Taken: Yes ABDI-7 AMB Questionnaire ABDI-7 Date ABDI - 7 assessed: 02/18/25 Feeling nervous, anxious, or on edge: 0 = Not at all Not being able to stop or control worryin = Not at all Worrying too much about different things: 0 = Not at all Trouble relaxin = Not at all Being so restless that it is hard to sit still: 0 = Not at all Becoming easily annoyed or irritable: 1 = Several days Feeling afraid as if something awful might happen: 0 = Not at all Total ABDI-7 score (0-4 normal; 5-9 mild; 10-14 moderate; 15-21 severe): 1 Source: Developed by Drs. James Pereira, Stormy Martin, Rayo Bernstein and colleagues, with an educational rakesh from [employer]. ABDI-7 Assessment Billing ABDI-7 Assessment Tool: ABDI-7 Assessment 75615 Review of Systems Const Details: Denies chills, Denies fatigue, Denies fever(s), Denies headache(s) and Denies weakness HEENT Denies change in vision, Denies dizziness, Denies headache(s), Denies hearing loss, Denies nasal congestion, Denies sinus pain, Denies sinus pressure and Denies sore throat Card Denies chest pain, Denies lightheadedness, Denies dyspnea and Denies other (palpitations) Resp Denies cough, Denies dyspnea and Denies wheezing GI Denies abdominal pain, Denies melena, Denies hematochezia, Denies change in bowel habits, Denies dyspepsia and Denies nausea Denies hematuria and Denies dysuria Musc Denies abnormal gait, Denies myalgias, Denies arthralgias, Denies numbness and Denies tingling Skin/Breast Denies rash, Denies unusual bruising and Denies wounds Neuro Denies abnormal gait, Denies dizziness, Denies headache(s), Denies memory loss, Denies numbness, Denies Sensory deficit (Neuro), Denies tingling and Denies weakness Psych Denies anxiety, Denies depression and Denies memory loss Endo Denies cold intolerance, Denies fatigue, Denies heat intolerance, Denies p olydipsia and Denies polyuria Barrera/Lymph Denies easy bleeding and Denies easy bruising Aller/Immun Denies wheezing Physical exam (Primary Care) Tobacco/Smoking Status: Tobacco use Status Tobacco use date assessed 02/18/25 02/18/25 08:08 Patient Tobacco Use Status Never used Tobacco 02/18/25 08:05 e-Cigarette/Vaping Use Never Used 02/18/25 08:05 PHQ-9: PHQ-9 Score PHQ-9: Total score 0 02/18/25 08:05 Depression Screening Interpretation: Negative Thrive Assessment: Date of Thrive Assessment Date Thrive assessed 02/18/25 02/18/25 08:05 Currently or been in a relationship where the following occur: No concerns reported Const Other: General: no acute distress, well developed, alert and awake Nutritional Appearance: well nourished Orientation/consciousness: patient oriented x3 HENMT Head: Yes normocephalic and Yes atraumatic Ears: hearing grossly normal bilaterally and TM's normal bilaterally General nose exam: Normal external nose present and Normal nares present Mouth: Normal oral and palatal mucosa present and moist mucous membranes Teeth and gingiva: dentition normal Throat: Yes oropharynx normal Eyes Pupils: Equal, round and reactive pupils present and Pupil accommodation reflex normal EOM: EOMs intact bilaterally Neck Neck: Yes normal visual inspection, Yes no lymphadenopathy and Yes trachea midline Thyroid: Thyroid normal Carotids: no bruits Lymphatic: no lymphadenopathy noted Chest Chest palpation & inspection: normal inspection of the chest Resp Effort & Inspection: normal respiratory effort Auscultation: clear to auscultation bilaterally Cardio Rate: regular rate Rhythm: regular rhythm Heart sounds: S1 normal heart sound present, S2 normal heart sound present, no gallops, no murmurs and no rubs Bruits: no abdominal aortic bruits and no carotid bruits GI Palpation (GI): No Abdominal aortic bruit present, Soft to palpation, nontender, No hepatosplenomegaly present and No Rebound tenderness present Auscultation: normal bowel sounds General: Yes no CVA tenderness Back/Spine/Pelvis Back: no CVA tenderness Cervical Spine: cervical ROM normal and No Cervical spine tenderness Thoracic/Lumbar Spine: thoraco-lumbar ROM normal, No pain with thoraco-lumbar ROM, No thoracic spinal tenderness and No lumbar spinal tenderness Skin General: warm and dry. Normal skin color. Normal skin turgor Lesions: no lesions Rashes: no rashes Trauma: no lacerations or abrasions Wounds: no wounds Nails: normal Neuro General: patient oriented x3, gait normal and CN's II-XI intact bilaterally Cranial nerves: Yes Equal, round and reactive pupils present Cognition (Neuro): normal cognition Gait exam (Neuro): Normal gait present Motor exam (neuro): 5/5 motor strength present throughout Sensory Exam: No Sensory deficit (Neuro) Deep tendon reflexes (DTR's): Right patellar reflex intensity grade: 2+ and Left patellar reflex intensity grade: 2+ Extrem General: Yes normal to inspection, No edema and No calf tenderness Psych Appearance: grossly normal Affect: normal affect Attitude: cooperative Thought process: Normal thought process present Coding Level of Care Code Tele Est Pt Level 3 (41321) Est Pt Prev Care 18-39y(60817) Diagnoses Normal physical exam Z00.00 Headache R51.9 Laboratory tests ordered as part of a complete physical exam (CPE) Z00.00 Additional Codes ABDI-7 Assessment Billing - ABDI-7 Assessment Tool: ABDI-7 Assessment 36230 ([id number]) PHQ-9 - 62308 - PHQ-9 Billing: Yes ([id number]) Assessment & Plan Assessment & Plan (1) Normal physical exam: Code(s): Z00.00 - Encounter for general adult medical examination without abnormal findings Category: Medical Plan: No significant functional limitation. Healthy diet and routine exercise encouraged. Perform lab work and follow-up for telehealth visit for labs review in 2 weeks. Return sooner with symptoms or concerns. Verbalized understanding and agreed with plan. (2) Headache: Code(s): R51.9 - Headache, unspecified Category: Medical Plan: Reports intermittent frontal headache for the past 2 months. Denies associated dizziness, visual disturbance, pain to eyes, or nausea. Her work involves looking at computer screen for significant amount of time. She also mentioned work stressors. Ibuprofen provides relief. No acute symptoms at this time. May be related to stress or straining of the eyes with prolonged screen time. Routine exercise and less screen time encouraged. May take Tylenol ibuprofen as needed. Follow-up with worsening or new symptoms. Verbalized understanding and agreed with the plan. (3) Laboratory tests ordered as part of a complete physical exam (CPE): Code(s): Z00.00 - Encounter for general adult medical examination without abnormal findings Category: Medical Plan: Fasting labs ordered as part of a complete physical exam. Advised to fast for at least 10 hours before getting labs drawn. May drink water Verbalized understanding and agreed with treatment plan. Orders: Orders Comprehensive [place]. Panel Fast Today Z00.00 - Encounter for general adult medical examination without abnormal findings Microalbumin, Random (w Creat) Today Z00.00 - Encounter for general adult medical examination without abnormal findings TSH reflex Free T4 Today Z00.00 - Encounter for general adult medical examination without abnormal findings UA CC w/rflx Micro + Cult Today Z00.00 - Encounter for general adult medical examination without abnormal findings Complete Blood Count Auto Diff Today Z00.00 - Encounter for general adult medical examination without abnormal findings Lipid Panel Today Z00.00 - Encounter for general adult medical examination without abnormal findings Vitamin D 25-OH Total Today Z00.00 - Encounter for general adult medical examination without abnormal findings
[2025-02-18 08:08] VITALS: BP 109/56; PULSE 68; RESP 16; TEMP 36.4; O2SAT 100; BMI 18.9
--- OUTSIDE RECORDS SUMMARY | 2025-02-18 08:13 | XMS_ITS | Encounter Summary ---
Author Organization [facility] Address [address] [place] [address] Phone Care Team Providers Care Stock Buyer Name Role Phone Chasidy Hubbard MD Primary Care Provider Encounter Details Date Type Department Care Team (Late st Contact Info) Description 10/31/2016 Conversion Encounter [facility] [place] [address] [place] [address] Social History Tobacco Use Types Packs/Day Years Used Date Smoking Tobacco: Never Assessed Comments Unknown Sex and Gender Information Value Date Recorded Sex Assigned at Not on file Legal Sex Female 4:27 PM EDT Gender Identity Not on file Sexual Orientation Not on file documented as of this encounter Plan of Treatment Not on file documented as of this encounter Visit Diagnoses Not on filedocumented in this encounter Care Teams Stock Buyer Relationship Specialty Start Date End Date Chasidy Hubbard MD [address] [place] [address] PCP - General 10/25/16 documented as of this encounter
--- OUTSIDE RECORDS SUMMARY | 2025-02-18 08:13 | XMS_ITS | Clinical Summary ---
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 Likely secondary to this. She is going to stop OCPs. If no menses within three months, recommend hormonal assessment. Immunizations Immunization Administration Dates Next Due COVID-19 (Pre-01/06) Moderna Vaccine, mRNA, PF 06/12/2020 DTP 1995, 3,05/03/1991,02/23,1990 HPV,quadrivalent 10/06/2008,05/03/2008, 8 Hepatitis B 06/19/1995,01/09/1995,12/05/1994 Hib,PRP-T 04/04/1992, 2,02/23/1991,12/17 Influenza, Unspecified Formulation 12/21/2019 MMR 1995,04/04/1992 Meningococcal MCV4P 07/04/2005 Polio - OPV 1995, 3,02/23/1991,12/17 Td (adult),2 Lf Tetanus Toxo id, PF, Adsorbed 05/13/2002 Tdap 02/22/2008 Family History Medical History Relation Comments Diverticulitis Father Diabetes Maternal Grandmother Heart disease Maternal Grandmother Diabetes mellitus Mother Endometriosis Mother Hypertension Mother Stomach cancer Paternal Grandfather Relation Status Comments Brother 1 Alive Brother 2 Alive Father Alive Maternal Grandfather Maternal Grandmother Mother Alive Paternal Grandfather Paternal Grandmother Alive Social History Tobacco Use Types Packs/Day Years Used Date Smoking Tobacco: Never Smokeless Tobacco: Never Alcohol Use Standard Drinks/Week Comments Yes 0 (1 standard drink = 0.6 oz pur e alcohol) monhtly or less Education Answer Date Recorded Are you interested in more education? Not on marlena e 07/12/2022 Are you concerned about learning? Not on file 07/12/2022 No 07/12/2022 No 07/12/2022 Digital Access Answer Date Recorded No 08/09/2022 No 08/09/2022 Reliable internet access at home? Not on file 08/09/2022 Device with a working camera? Not on file Comments No Sex and Gender Information Value Date Recorded Sex Assigned at Female 04/24/2020 9:10 AM EST Legal Sex Female 9:01 PM EDT Gender Identity Female 04/24/2020 9:10 AM EST Sexual Orientation Straight 04/24/2020 9: 10 AM EST Occupation Industry Job Start Date Job End Date [employer] Not on file Not on file N ot on file Last Filed Vital Signs Vital Sign Reading Time Taken Comments Blood Pressure 106/64 02/20/2021 10:44 AM EST Pulse - - Temperature - - Respiratory Rate - - Oxygen Saturation - - Inhaled Oxygen Concentration - - Weight 52.2 kg (115 lb) 02/20/2021 10:44 AM EST Height 176.5 cm (5' 9.5 ) 02/20/2021 10:44 AM ES T Body Mass Index 16.74 02/20/2021 10:44 AM EST Plan of Treatment Health Maintenance Due Date Last Done Comments DEPRESSION SCREENING 2002 Adult Td,Tdap Booster 02/21/2018 02/22/2008, 003 PAP SMEAR 04/27/2023 04/27/2020, 04/0 11/2017, 06/23/2017, Additional history exists INFLUENZA VACCINE (#1) 2024 12/21/2019 COVID-19 VACCINE ( season) 2024 07/10/2020, 06/12/2020 HIB VACCINES Completed 04/04/1992, 04/17, 02/23/1991, Additional history exists MENINGOCOCCAL VACCINES (ACWY) Aged Out 07/04/2005 No longer eligible based on patient's age to complete this topic HEPATITIS C SCREENING Completed 02/19/2019, 019 HIV ONE-TIME SCREENING (18-65 YEARS) Completed 02/19/2019 SMOKING STATUS SCREENING (Once After 26 Yrs) Completed 02/20/2021 HEPATITIS A VACCINES Aged Out No long er eligible based on patient's age to complete this topic MENINGOCOCCAL VACCINES (B) Aged Out N o longer eligible based on patient's age to complete this topic PNEUMOCOCCAL VACCINES (0-49 years) Aged Out No longer eligible based on patient's age to complete this topic Medical Devices Not on file Procedures Procedure Name Priority Date/Time Associated Diagnosis Comments PAP TEST Routine 04/27/2020 12:00 AM EST HEPATITIS C ANTIBODY, QUALITATIVE Routine 02/19/2019 9:40 AM EST Routine screening for STI (sexually transmitted infection) from Last 3 Months or Most Recently Relevant to Health Maintenance Results * Pap Smear (04/27/2020 12:00 AM EST) 04/27/2020 04/28/2020 9:3 1 AM EST Narrative SEE NARRATIVE - 05/01/2020 2:20 PM EST [address] [address] [place] Equipment Maintenance Supervisor: Venus Garcia MD KNOWLEDGE MANAGEMENT CONSULTANT Cytology Report FINAL DIAGNOSIS A. PAP SMEAR (SUREPATH) CE: SPECIMEN ADEQUACY: Satisfactory for evaluation; transformation zone present. Evaluation limited by thickness of cellular specimen. INTERPRETATION: NEGATIVE FOR INTRAEPITHELIAL LESION OR MALIGNANCY. Electronically Signed Out By: SAPNA Merrill(ASCP) The Pap test is a screening test primarily for squamous cancers and precursors and has associated false-negative and false-positive results. New technologies such as liquid-based preparations may decrease but will not eliminate all false-negative results. Regular sampling and follow-up of unexplained clinical signs and symptoms are recommended to minimize false negative results. CLINICAL HISTORY Date of Last Menstrual Period: Not Provided Menstrual History: Unknown Other Clinical Conditions: Screening Pap SPECIMEN SOURCE A: PAP SMEAR (SUREPATH) CE Patient Name: LAMAR ELISE : 1990 (Age: 29) Sex: F Institution: [facility] Location: [facility] Date of Collection: 04/27/2020 Date of Reported: 05/01/2020 14:20 Results to: Adrienne Lozoya CNM us Adrienne Brandon Devora JOE CYTOLOGY ORDERABLES Final Res ult SEE NARRATIVE * Hepatitis C antibody, qualitative (02/19/2019 9:40 AM EST) HCV NON-REACTIV E NON-REACTI VE [facility] Blood 02/19/2019 9:40 AM EST 02/19/2019 9:43 AM EST us Yousuf Renner CNM LAB BLOOD BKR ORDERABL ES Final Result Performing Organization Address City/[facility]/ZIP Co de Phone Number [facility] [address] [place] [address] from Last 3 Months or Most Recently Relevant to Health Maintenance [facility] [place] [address] [place] [id number] [place] [address] [place] [address] [place] [address] [place] [address] [place] [address] [place] [address] [place] [address] HMO POS [facility] HMO POS [facility] HMO POS Care Teams Bods Developer Relationship Specialty Start Date End Date Troy Medina DO [address] [place] [id number] PCP - General 03/20/17 Violeta Kingston CNM [address] [place] [id number] Historical LMR Provider 01/01/17 Additional Source Comments The information contained in this document represents components of the legal health record. It is not the complete legal health record.[facility]
--- OUTSIDE RECORDS SUMMARY | 2025-02-18 08:13 | XMS_ITS | Encounter Summary ---
Author Organization [facility] Address [address] [place] [address] Phone Care Team Providers Care Pattern Clerk Name Role Phone Chasidy Hubbard MD Primary Care Provider Encounter Details Date Type Department Care Team (Late st Contact Info) Description 06/20/2011 Documentation [facility] [address] [place] [address] Family Medicine, Physician [address] [place], [place] [id number] Social History Tobacco Use Types Packs/Day Years [...] on filedocumented in this encounter Care Teams Pattern Clerk Relationship Specialty Start Date End Date Chasidy Hubbard MD [address] [place] [address] [place] [address] PCP - General 10/25/16 documented as of this encounter
--- OUTSIDE RECORDS SUMMARY | 2025-02-18 08:13 | XMS_ITS | Clinical Summary ---
Author Organization [facility] Address [address] [place] [address] Phone Care Team Providers Care Frequency Checker Name Role Phone Chasidy Hubbard MD Primary Care Provider [phone] Immunizations Immunization Administration Dates Next Due DTP 1995, 3,05/03/1991,02/23,1990 HPV, Quadrivalent 10/06/2008,05/03/2008,02/22/20 08 Hep B, ped/adol 06/19/1995,01/09/1995,12/05/1994 Hib (PRP-T) 04/04/1992, 2,02/23/1991,12/17 MMR 1995,04/04/1992 Meningococcal Conj (Menactra) MCV4P 07/04/2005 OPV 1995, 3,02/23/1991,12/17 Td (adult) (MBL), 2 Lf tetan us toxoid, PF, adsorbed 05/13/2002 Tdap 02/22/2008 Family History Relation Name Status Comments Brother Brother: ADD/AD HD Father Alive Father: Hyperte nsion Maternal Grandmother Materna l grandmother: , Diabetes mellitus, Cancer -lung Mother Alive Mother: Alive a nd well Paternal Grandfather Paterna l grandfather: emphysema Paternal Grandmother Paterna l grandmother: Diabetes mellitus Social History Tobacco Use Types Packs/Day Years Used Date Smoking Tobacco: Never Assessed Comments Unknown Sex and Gender Information Value Date Recorded Sex Assigned at Not on file Legal Sex Female 4:27 PM EDT Gender Identity Not on file Sexual Orientation Not on file Plan of Treatment Health Maintenance Due Date Last Done Comments Varicella Vaccines (1 of 2 - 13+ 2-dose series) 10/08/2003 DTaP,Tdap,and Td Vaccines (7 - Td or Tdap) 02/21/2018 02/22/2008, 05/13/2002, 1995, Additional history exists Influenza Vaccines (#1) 2024 COVID-19 Vaccine (1 - 2024- season) 2024 HIB Vaccines Completed 04/04/1992, 04/17, 02/23/1991, Additional history exists Hepatitis B Vaccines Completed 06/19/1995, 01/09/1995, 12/05/1994 IPV Vaccines Completed 1995, 06/17, 02/23/1991, Additional history exists MMR Vaccines Completed 1995, 04/04/1992 Meningococcal Vaccine Aged Out 07/04/2005 No kori mary anne eligible based on patient's age to complete this topic HPV Vaccines Completed 10/06/2008, 04/17, 02/22/2008 Hepatitis A Vaccines Aged Out No long er eligible based on patient's age to complete this topic Men B Vaccine Aged Out No longer elig ible based on patient's age to complete this topic Pneumococcal Vaccine Aged Out No long er eligible based on patient's age to complete this topic Care Teams Frequency Checker Relationship Specialty Start Date End Date Chasidy Hubbard MD [address] [place] [address] [place] [id number] PCP - General 10/25/16
== END 2025-02-18 08:36 | disposition home or self-care (01) ==
LOC: HO.HMCFM 08:02
PROVIDERS: PCP Nurse Practitioner Family; Visit Provider Nurse Practitioner Family
DX: Z00.00 Encounter for general adult medical examination without abnormal findings (principal); R51.9 Headache, unspecified

== ENCOUNTER 2025-02-18 08:01 | Outpatient (REF) | payer BC, SELFPAY ==
[2025-02-18 11:31] LABS: MANUAL DIFF FLAG NO
[2025-02-18 11:39] LABS: Hematocrit 38.5 % (37.0-47.0); Hemoglobin 12.8 g/dl (12.0-16.0); Imm Gran Abs Auto 0.01 X10*3/uL (0.00-0.03); Imm Gran Pct Auto 0.2 % (0.0-0.4); Lymphocytes Absolute Auto 1.1 X10*3/uL (1.2-4.9); Mean Corpuscular HGB Conc 33.2 g/dl (31.0-35.0); Mean Corpuscular Hemoglobin 31.3 pg (27.0-33.0); Mean Corpuscular Volume 94.1 fL (80.0-98.0); NRBC Abs Auto 0.000 X10*3/uL (0.0-0.012); NRBC Pct Auto 0.0 /100WBC (0.0-0.2); Platelet Count 265 X10*3/uL (160-400); Red Blood Count 4.09 X10*6/uL (4.20-5.50); White Blood Count 4.2 X10*3/uL (4.8-10.8)
[2025-02-18 12:04] LABS: Alanine Aminotransferase 16 U/L (0-31); Albumin Level 4.8 g/dL (3.5-5.0); Alkaline Phosphatase 51 U/L (39-117); Anion Gap 12 (12-20); Aspartate Amino Transferase 22 U/L (5-31); Blood Urea Nitrogen 10 mg/dL (9-16); Calcium 9.1 mg/dL (8.4-10.2); Carbon Dioxide 27 mmol/L (22-29); Chloride 107 mmol/L (96-108); Cholesterol 138 mg/dL (<200); Estimated Glomerular Filt Rate > 60; HDL Cholesterol 61 mg/dL (>40); Potassium 4.0 mmol/L (3.3-5.1); Sodium 142 mmol/L (135-145); Total Protein 7.3 g/dL (6.5-8.0); Triglycerides 67 mg/dL (<150)
[2025-02-18 14:20] LABS: Appearance Urine Clear; Glucose Urine UA Negative (Negative); PH 6.5 (5.0-9.0); Specific Gravity - Urine 1.020 (1.005-1.025); UMIC TRIGGER UACC YES
[2025-02-18 17:19] LABS: Microalbum/Creatinine Ratio Ur 19.6 ug/mg cr (<30)
== END 2025-02-18 08:02 | disposition home or self-care (01) ==
LOC: HO.WFDLDS 08:01
PROVIDERS: PCP Nurse Practitioner Family; Visit Provider Nurse Practitioner Family
DX: Z00.00 Encounter for general adult medical examination without abnormal findings (principal); R51.9 Headache, unspecified
CPT/HCPCS: 36415; 80053; 80061; 81001; 82043; 82306; 82570; 84443; 85025; 96127